=== PATIENT | female | born 1970 | race Caucasian/White ===

== ENCOUNTER 2025-04-06 21:22 | Emergency (ER) | payer MEDICARE, MEDICAID, SELFPAY ==
[2025-04-06 21:31] VITALS: BP 121/87; PULSE 76; RESP 18; TEMP 36.6; O2SAT 99; BMI 20.6
--- NOTE | 2025-04-07 02:41 | PC.NURSE ---
LWBS, did not alert staff
--- NOTE | 2025-04-07 02:45 | ED.GENADULT ---
HPI - General Adult General Chief complaint: Eye Problems Stated complaint: pieces of contacts in right eye Time Seen by Provider: 04/07/25 02:29 Related Data Allergies Allergy/AdvReac Type Severity Reaction Status Date / Time No Known Allergies Allergy Verified 04/06/25 21:33 [No Known Allergies*] PMFSH Social History Social History Advance Directives: No Do you have a plan to hurt others: No Plan Physical Exam ED Vital Signs: Vital Signs - 24 hr 04/06/25 21:31 Temperature 98 F Pulse Rate 76 Respiratory Rate 18 Blood Pressure 121/87 Pulse Oximetry 99 Oxygen Delivery Method Room Air BMI result Body Mass Index 20.6 Course Reevaluation(s) Reevaluation #1: I went to assess the patient she had walked out Discharge Plan Discharge Clinical Impression: Eye abnormalities Patient Disposition: Left Without Being Seen Interventions: LWBS Worksheet Last Done: 04/07/25 02:42
== END 2025-04-07 02:54 | disposition left against medical advice (07) ==
PROVIDERS: Emergency Provider Emergency Medicine; PCP Internal Medicine
DX: H57.13 Ocular pain, bilateral (principal)
CPT/HCPCS: 99281